=== PATIENT | male | born 1980 | race Caucasian/White ===

== ENCOUNTER 2018-01-12 16:04 | Emergency (ER) | payer MEDICAID ==
[2018-01-12 16:11] VITALS: BP 132/85; PULSE 79; RESP 18; TEMP 97.6; O2SAT 97
--- NOTE | 2018-01-12 16:55 | C.PDOC ---
History Of Present Illness 37 y/o male presents to ED for evaluation of foreign body to left ear after using a qtip earlier today. Pt notes it has been hurting him for a couple of days so he was trying to clean it out and the cotton swab was left in. Patient denies decreased hearing, headache, ear discharge, fever, headache or any other complaints at this time. Time Seen by Provider: 01/12/18 16:13 Chief Complaint (Nursing): ENT Problem History Per: Patient History/Exam Limitations: None Onset/Duration Of Symptoms: Days Current Symptoms Are (Timing): Still Present Past Medical History Reviewed: Historical Data, Nursing Documentation, Vital Signs Vital Signs: Last Vital Signs Temp 97.6 F 01/12/18 16:10 Pulse 79 01/12/18 16:10 Resp 18 01/12/18 16:10 BP 132/85 01/12/18 16:10 Pulse Ox 97 01/12/18 16:10 - Medical History PMH: No Chronic Diseases Surgical History: No Surg Hx Family History: States: No Known Family Hx - Social History Hx Alcohol Use: No Hx Substance Use: No Review Of Systems ENT: Positive for: Ear Pain. Negative for: Ear Discharge Skin: Negative for: Rash Neurological: Negative for: Headache Physical Exam - Physical Exam Appears: Non-toxic, No Acute Distress Skin: Warm, Dry, No Rash Head: Atraumatic, Normacephalic Eye(s): bilateral: Normal Inspection, EOMI Ear(s): Left: Other (Foreign body noted), Right: Normal Nose: Normal Oral Mucosa: Moist Throat: Normal, No Erythema, No Exudate Neck: Normal ROM, Supple Chest: Symmetrical Respiratory: No Accessory Muscle Use Extremity: Normal ROM Neurological/Psych: Oriented x3, Normal Speech, Normal Cognition ED Course And Treatment O2 Sat by Pulse Oximetry: 97 (RA) Pulse Ox Interpretation: Normal Progress Note: Foreign body removed, patient tolerated well. On re evaluation Left TM erythematous, no discharge or active bleeding. Patient discharged with antibiotics and follow up with ENT in 1-2 days Disposition - Disposition Referrals: Erlin Velarde MD [Staff Provider] - Disposition: HOME/ ROUTINE Disposition Time: 16:52 Condition: STABLE Additional Instructions: Follow up with your primary medical doctor or clinic in 2-5 days for further evaluation. Take medications as prescribed. Return to the emergency department at any time if symptoms persist or worsen. Prescriptions: Amoxicillin 875 mg PO BID #20 tablet Ibuprofen [Motrin] 600 mg PO Q6 PRN #20 tab PRN Reason: Pain, Mild (1-3) Instructions: Ear Infections (Otitis Media) (DC) Forms: [email or web address] ([employer]) - Clinical Impression Clinical Impression: Ear foreign body, Otitis media - PA / CATERING ADMINISTRATIVE ASSISTANT / Resident Statement MD/DO has reviewed & agrees with the documentation as recorded. - Scribe Statement The provider has reviewed the documentation as recorded by the Jovanibgin Peralta All medical record entries made by the Shabbir were at my direction and personally dictated by me. I have reviewed the chart and agree that the record accurately reflects my personal performance of the history, physical exam, medical decision making, and the department course for this patient. I have also personally directed, reviewed, and agree with the discharge instructions and disposition.
== END 2018-01-12 17:01 | disposition home or self-care (01) ==
LOC: C.ER 16:04
DX: T16.2XXA Foreign body in left ear, initial encounter (principal); X58.XXXA Exposure to other specified factors, initial encounter; H66.92 Otitis media, unspecified, left ear